=== PATIENT | male | born 1975 | race African-American/Black ===

== ENCOUNTER 2018-09-19 10:14 | Inpatient (IN) | payer OTHER ==
[~2018-09-19] VITALS: Ht 170.2 cm; Wt 103.0 kg
[2018-09-19] MEDS ORDERED: VANCOMYCIN 1 G PREMIX 200 ML IV SCH (11:00)
[2018-09-19] MEDS ORDERED: PIPERACILLIN/TAZ 2.25G PREMIX 50 ML IV ONE (11:00)
[2018-09-19 11:40] LABS: BASOPHILS % 0.4 % (0.0-2.0); EOSINOPHILS % 0.5 % (0.0-5.0); HEMATOCRIT. 34.2 % (42.0-52.0); HEMOGLOBIN. 11.4 g/dL (14.0-18.0); LYMPHOCYTES % 20.8 % (20.0-50.0); MEAN CORPUSCULAR HEMOGLOBIN 26.6 pg (28.0-32.0); MEAN CORPUSCULAR VOLUME 79.9 fL (80.0-94.0); MEAN PLATELET VOLUME 7.2 fl (7.4-10.4); MONOCYTES % 10.2 % (2.0-8.0); NEUTROPHILS % 68.1 % (40.0-76.0); PLATELET 333 x1000/uL (130-400); RED BLOOD CELL COUNT 4.28 mill/uL (4.7-6.1); RED CELL DISTRIBUTION WIDTH 16.1 % (11.6-14.6)
[2018-09-19 11:41] LABS: CHLORIDE 105 mEq/L (98-107)
[2018-09-19 11:48] LABS: PROTHROMBIN TIME 10.6 sec (9.6-11.0)
[2018-09-19] MEDS ORDERED: ONDANSETRON HCL 4MG/2ML INJ IV PRN (14:45)
[2018-09-19] MEDS ORDERED: CLONIDINE 0.1MG TABLET PO PRN (14:45)
[2018-09-19] MEDS ORDERED: ACETAMINOPHEN 325MG TABLET PO PRN (14:45)
[2018-09-19] MEDS ORDERED: MAGNESIUM/ALUMINUM HYDROXIDE/SIMETHICONE 30ML UDC PO PRN (14:45)
[2018-09-19] MEDS ORDERED: IPRATROPIUM/ALBUTEROL 0.5-3(2.5)MG/3ML NEB INH PRN (14:45)
[2018-09-19 17:28] LABS: *AMPHETAMINES SCREEN URINE NEGATIVE (NEGATIVE); *BARBITURATES SCREEN URINE NEGATIVE (NEGATIVE); *BENZODIAZEPINES SCREEN URINE NEGATIVE (NEGATIVE); *COCAINE SCREEN URINE NEGATIVE (NEGATIVE)
[2018-09-19 17:29] LABS: CANNABINOID URINE SCREEN NEGATIVE (NEGATIVE); METHADONE URINE SCREEN NEGATIVE (NEGATIVE); OPIATES URINE SCREEN NEGATIVE (NEGATIVE); PHENCYCLIDINE URINE SCREEN NEGATIVE (NEGATIVE)
[2018-09-19 19:13] LABS: CHLORIDE 105 mEq/L (98-107)
[2018-09-19] MEDS: ENOXAPARIN 40MG/0.4ML SYR SUBCUT SCH (21:00)
[2018-09-19] MEDS: HYDROCODONE/ACETAMINOPHEN 5/325MG TABLET PO PRN (21:38)
[2018-09-19 22:04] VITALS: BP 157/87
[2018-09-19 22:15] LABS: TOTAL IRON BINDING CAPACITY 292 ug/dL (250-450)
[2018-09-19] MEDS ORDERED: xarelto (22:20)
[2018-09-19] MEDS ORDERED: carvedilol (22:24)
[2018-09-19] MEDS ORDERED: [UNRECOGNIZED DRUG - OTHER] (22:26)
[2018-09-19 22:43] VITALS: BP 157/87
[2018-09-19 23:19] LABS: CHLORIDE 106 mEq/L (98-107)
[2018-09-19 23:27] LABS: CREATINE KINASE 168 IU/L (39-308)
[2018-09-20] VITALS: BP 114/75
[2018-09-20] MEDS: PIPERACILLIN/TAZ 3.375G PREMIX 50 ML IV SCH ×5 (03:29→23:00)
[2018-09-20] MEDS: VANCOMYCIN 750 MG PREMIX 150 ML IV SCH ×2 (03:33→08:05)
[2018-09-20 04:00] VITALS: BP 139/90
[2018-09-20 05:17] LABS: BASOPHILS % 0.5 % (0.0-2.0); EOSINOPHILS % 1.4 % (0.0-5.0); HEMOGLOBIN. 10.6 g/dL (14.0-18.0); LYMPHOCYTES % 29.5 % (20.0-50.0); MEAN CORPUSCULAR HEMOGLOBIN 26.3 pg (28.0-32.0); MEAN CORPUSCULAR VOLUME 79.6 fL (80.0-94.0); MEAN PLATELET VOLUME 7.3 fl (7.4-10.4); MONOCYTES % 9.8 % (2.0-8.0); NEUTROPHILS % 58.8 % (40.0-76.0); PLATELET 315 x1000/uL (130-400); RED BLOOD CELL COUNT 4.02 mill/uL (4.7-6.1)
[2018-09-20 05:51] LABS: LDL CHOLESTEROL 77 mg/dL (5-100)
[2018-09-20 05:53] LABS: CREATINE KINASE 144 IU/L (39-308); HDL CHOLESTEROL 41 mg/dL (40-59)
[2018-09-20 05:55] LABS: CREATINE KINASE MB FRACTION < 1.0 ng/mL (0.5-3.6)
[2018-09-20 08:00] VITALS: BP 112/70
[2018-09-20 12:00] VITALS: BP 117/78
[2018-09-20] MEDS ORDERED: SODIUM BICARBONATE 4% (2.4MEQ) 5ML VIAL IV ONE (12:47)
[2018-09-20] MEDS ORDERED: LIDOCAINE HCL 1% 20ML VIAL (Pyxis) INJ ONE (12:47)
[2018-09-20 16:00] VITALS: BP 111/86
[2018-09-20 20:00] VITALS: BP_SYST 123; BP_SYST 133; BP_DIAS 70; BP_DIAS 76
[2018-09-20] MEDS: VANCOMYCIN 1 G PREMIX 200 ML IV SCH (20:04)
[2018-09-20] MEDS: ENOXAPARIN 40MG/0.4ML SYR SUBCUT SCH (21:00)
[2018-09-20] MEDS: HYDROCODONE/ACETAMINOPHEN 5/325MG TABLET PO PRN (23:11)
[2018-09-21] VITALS (8 sets, daily range): BP systolic 108–144; BP diastolic 58–97
[2018-09-21] MEDS: HYDROCODONE/ACETAMINOPHEN 5/325MG TABLET PO PRN (03:01)
[2018-09-21] MEDS: PIPERACILLIN/TAZ 3.375G PREMIX 50 ML IV SCH ×4 (06:54→23:46)
[2018-09-21 07:28] LABS: HEMATOCRIT. 28.7 % (42.0-52.0); HEMOGLOBIN. 9.4 g/dL (14.0-18.0); MEAN CORPUSCULAR HEMOGLOBIN 26.6 pg (28.0-32.0); MEAN CORPUSCULAR VOLUME 81.3 fL (80.0-94.0); RED BLOOD CELL COUNT 3.53 mill/uL (4.7-6.1); RED CELL DISTRIBUTION WIDTH 16.3 % (11.6-14.6)
[2018-09-21] MEDS: VANCOMYCIN 1 G PREMIX 200 ML IV SCH ×2 (08:20→21:57)
[2018-09-21 08:49] LABS: PLATELET 254 x1000/uL (130-400)
[2018-09-21 08:55] LABS: PLATELET ESTIMATE NORMAL
[2018-09-21 09:39] LABS: CHLORIDE 108 mEq/L (98-107)
[2018-09-21] MEDS ORDERED: PROPOFOL 200MG/20ML VIAL IV ONE (13:42)
[2018-09-21] MEDS ORDERED: MIDAZOLAM HCL 2 MG/2 ML VIAL ONE (13:42)
[2018-09-21] MEDS ORDERED: FENTANYL CITRATE/PF 50MCG/ML 2ML VIAL ONE (13:42)
[2018-09-21] MEDS ORDERED: LIDOCAINE HCL/PF 1% 10 MG/ML 5ML VIAL ONE (13:43)
[2018-09-21] MEDS ORDERED: ROCURONIUM BROMIDE 10MG/ML VIAL 5ML IV ONE (13:43)
[2018-09-21] MEDS ORDERED: EPHEDRINE SULFATE 50MG/ML VIAL ONE (13:43)
[2018-09-21] MEDS ORDERED: PHENYLEPHRINE HCL 10 MG/ML 1ML (IV VIAL) IV ONE (13:43)
[2018-09-21] MEDS ORDERED: IODIXANOL 320MG/ML 200ML BOTTLE ONE (13:47)
[2018-09-21] MEDS ORDERED: LIDOCAINE HCL 1% 20ML VIAL (Pyxis) INJ ONE (13:48)
[2018-09-21] MEDS ORDERED: SODIUM CHLORIDE 0.9% 10ML VIAL ONE (13:50)
[2018-09-21] MEDS ORDERED: THROMBIN (BOVINE) 5000 UNITS/VIAL TOP ONE (14:22)
[2018-09-21] MEDS ORDERED: HEPARIN 1000 UNITS/ML 10ML ONE (14:25)
[2018-09-21] MEDS ORDERED: IOHEXOL-300 100 ML BOTTLE ONE (14:39)
[2018-09-21] MEDS ORDERED: MORPHINE SULFATE 10 MG/ML CPJ IV PRN (15:30)
[2018-09-21] MEDS: HYDROMORPHONE HCL/PF 2MG/ML CPJ IV PRN ×3 (16:10→16:26)
[2018-09-21] MEDS: CLOPIDOGREL 75MG TABLET PO SCH (17:58)
[2018-09-21] MEDS: ENOXAPARIN 40MG/0.4ML SYR SUBCUT SCH (23:18)
[2018-09-22] VITALS (11 sets, daily range): BP systolic 101–156; BP diastolic 56–98
[2018-09-22] MEDS ORDERED: RIVA20TA MT (03:22)
[2018-09-22] MEDS ORDERED: SACU1TAB MT (03:22)
[2018-09-22] MEDS ORDERED: FAMO20TA8 MT (03:22)
[2018-09-22] MEDS ORDERED: COR6 MT (03:22)
[2018-09-22] MEDS: PIPERACILLIN/TAZ 3.375G PREMIX 50 ML IV SCH ×4 (05:05→23:34)
[2018-09-22 06:51] LABS: BASOPHILS % 0.4 % (0.0-2.0); EOSINOPHILS % 1.5 % (0.0-5.0); HEMATOCRIT. 32.2 % (42.0-52.0); HEMOGLOBIN. 10.5 g/dL (14.0-18.0); LYMPHOCYTES % 16.7 % (20.0-50.0); MEAN CORPUSCULAR HEMOGLOBIN 26.1 pg (28.0-32.0); MEAN CORPUSCULAR VOLUME 79.9 fL (80.0-94.0); MEAN PLATELET VOLUME 7.2 fl (7.4-10.4); MONOCYTES % 7.7 % (2.0-8.0); NEUTROPHILS % 73.7 % (40.0-76.0); PLATELET 279 x1000/uL (130-400); RED BLOOD CELL COUNT 4.03 mill/uL (4.7-6.1); RED CELL DISTRIBUTION WIDTH 15.9 % (11.6-14.6)
[2018-09-22 07:51] LABS: CHLORIDE 107 mEq/L (98-107)
[2018-09-22] MEDS: CLOPIDOGREL 75MG TABLET PO SCH (07:58)
[2018-09-22] MEDS: VANCOMYCIN 1 G PREMIX 200 ML IV SCH (07:58)
[2018-09-22] MEDS: ENOXAPARIN 30MG/0.3ML SYR SUBCUT SCH (17:15)
[2018-09-22] MEDS ORDERED: ENOXAPARIN 30MG/0.3ML SYR SUBCUT SCH (21:00)
[2018-09-23] VITALS (12 sets, daily range): BP systolic 123–161; BP diastolic 68–96
[2018-09-23] MEDS: VANCOMYCIN 1250MG in DEXTROSE 5% WATER 250ML IV SCH ×2 (01:51→20:54)
[2018-09-23] MEDS ORDERED: VANCOMYCIN 750 MG PREMIX 150 ML IV SCH (02:00)
[2018-09-23] MEDS: PIPERACILLIN/TAZ 3.375G PREMIX 50 ML IV SCH ×4 (05:11→23:40)
[2018-09-23] MEDS: ENOXAPARIN 30MG/0.3ML SYR SUBCUT SCH ×2 (05:14→17:23)
[2018-09-23] MEDS: CLOPIDOGREL 75MG TABLET PO SCH (08:27)
[2018-09-23 09:25] LABS: EOSINOPHILS % 3.7 % (0.0-5.0); HEMATOCRIT. 33.5 % (42.0-52.0); HEMOGLOBIN. 10.9 g/dL (14.0-18.0); LYMPHOCYTES % 23.1 % (20.0-50.0); MEAN CORPUSCULAR HEMOGLOBIN 26.2 pg (28.0-32.0); MEAN CORPUSCULAR VOLUME 80.3 fL (80.0-94.0); MEAN PLATELET VOLUME 6.9 fl (7.4-10.4); MONOCYTES % 7.9 % (2.0-8.0); NEUTROPHILS % 64.3 % (40.0-76.0); PLATELET 256 x1000/uL (130-400); RED BLOOD CELL COUNT 4.17 mill/uL (4.7-6.1); RED CELL DISTRIBUTION WIDTH 16.6 % (11.6-14.6)
[2018-09-23 09:46] LABS: CHLORIDE 110 mEq/L (98-107)
[2018-09-23] MEDS ORDERED: LIDOCAINE HCL/EPINEPHRINE 1%-EPI 1:100,000 20 ML VIAL INFIL NR (10:45)
[2018-09-23] MEDS ORDERED: CLOP75TA16 PO (17:32)
[2018-09-24] VITALS (11 sets, daily range): BP systolic 117–154; BP diastolic 65–105
[2018-09-24] MEDS: PIPERACILLIN/TAZ 3.375G PREMIX 50 ML IV SCH ×2 (05:20→11:52)
[2018-09-24] MEDS: ENOXAPARIN 30MG/0.3ML SYR SUBCUT SCH (05:20)
[2018-09-24] MEDS: CLOPIDOGREL 75MG TABLET PO SCH (09:50)
[2018-09-24] MEDS: VANCOMYCIN 1250MG in DEXTROSE 5% WATER 250ML IV SCH (13:40)
== END 2018-09-24 14:58 | disposition home health service (06) | DRG 181 ==
LOC: ER 10:14 → 6EST 12:29 → EDBEDREQ 12:30 → EDBEDREQSVC 12:30 → EDBEDREQTM 12:30 → ENRESERV 18:24 → 3WST 09-21 17:45
PROVIDERS: ADMIT Internal Medicine; ATTEND Internal Medicine
PROC: B5181ZA Fluoroscopy of Superior Vena Cava using Low Osmolar Contrast, Guidance (ICD-10-PCS; 2018-09-19)
PROC: 02HV33Z Insertion of Infusion Device into Superior Vena Cava, Percutaneous Approach (ICD-10-PCS; 2018-09-19)
PROC: B548ZZA Ultrasonography of Superior Vena Cava, Guidance (ICD-10-PCS; 2018-09-19)
PROC: 04CL0ZZ Extirpation of Matter from Left Femoral Artery, Open Approach (ICD-10-PCS; principal; 2018-09-21)
PROC: 04CN0ZZ Extirpation of Matter from Left Popliteal Artery, Open Approach (ICD-10-PCS; 2018-09-21)
PROC: 047L3ZZ Dilation of Left Femoral Artery, Percutaneous Approach (ICD-10-PCS; 2018-09-21)
PROC: 047M3ZZ Dilation of Right Popliteal Artery, Percutaneous Approach (ICD-10-PCS; 2018-09-21)
PROC: B41G1ZZ Fluoroscopy of Left Lower Extremity Arteries using Low Osmolar Contrast (ICD-10-PCS; 2018-09-21)
PROC: B41F1ZZ Fluoroscopy of Right Lower Extremity Arteries using Low Osmolar Contrast (ICD-10-PCS; 2018-09-21)
PROC: 0KBS0ZZ Excision of Right Lower Leg Muscle, Open Approach (ICD-10-PCS; 2018-09-23)
DX: I70.203 Unspecified atherosclerosis of native arteries of extremities, bilateral legs (principal); I74.5 Embolism and thrombosis of iliac artery; L97.519 Non-pressure chronic ulcer of other part of right foot with unspecified severity; S91.319A Laceration without foreign body, unspecified foot, initial encounter; L97.529 Non-pressure chronic ulcer of other part of left foot with unspecified severity; I10 Essential (primary) hypertension; D64.9 Anemia, unspecified; X58.XXXA Exposure to other specified factors, initial encounter; Z85.47 Personal history of malignant neoplasm of testis; Y92.89 Other specified places as the place of occurrence of the external cause; Y93.89 Activity, other specified; Y99.8 Other external cause status; Z90.79 Acquired absence of other genital organ(s)
CPT/HCPCS: 36415; 36569; 36573; 37184; 37224; 71045; 73620; 75710; 80048; 80061; 80202; 80305; 82550; 82553; 83540; 83550; 83735; 84443; 84484; 85044; 86850; 86900; 93005; 93922; 93970; 96365; 96367; 97162; 97165; 99285; C1725; C1769; C1893; C1894; J1170; J1644; J1650; J2250; J2270; J2370; J2405; J2543; J2704; J3010; J3370; J3490; J7040; J7050; J7060; Q9967

== ENCOUNTER 2018-10-05 04:07 | Emergency (ER) | payer OTHER ==
[~2018-10-05] VITALS: Ht 170.2 cm; Wt 101.0 kg
[~2018-10-05 04:07] MED LIST: CLOP75TA4 PO; COR6 MT; FAMO20TA8 MT; RIVA20TA MT; SACU1TAB MT
[2018-10-05 04:58] LABS: CLARITY URINE CLEAR (CLEAR); COLOR URINE DARK YELLOW (YELLOW); KETONES URINE TRACE (NEGATIVE); LEUKOCYTE ESTERASE URINE NEGATIVE (NEGATIVE); NITRITE URINE NEGATIVE (NEGATIVE); OCCULT BLOOD URINE NEGATIVE (NEGATIVE); PH URINE 5.5 (4.5-8.0); PROTEIN URINE 1+ (NEGATIVE); SPECIFIC GRAVITY URINE 1.043 (1.005-1.030)
[2018-10-05] MEDS ORDERED: ONDANSETRON HCL 4MG/2ML INJ IV STA (05:39)
[2018-10-05] MEDS ORDERED: KETOROLAC 30MG/ML VIAL IV STA (05:39)
[2018-10-05] MEDS ORDERED: SODIUM CHLORIDE 0.9% 1,000 ML IV ONE (05:39)
[2018-10-05 06:20] LABS: CHLORIDE 106 mEq/L (98-107)
[2018-10-05 06:22] LABS: BASOPHILS % 0.3 % (0.0-2.0); EOSINOPHILS % 0.2 % (0.0-5.0); HEMATOCRIT. 34.9 % (42.0-52.0); HEMOGLOBIN. 11.5 g/dL (14.0-18.0); LYMPHOCYTES % 11.8 % (20.0-50.0); MEAN CORPUSCULAR VOLUME 81.8 fL (80.0-94.0); MONOCYTES % 5.8 % (2.0-8.0); NEUTROPHILS % 81.9 % (40.0-76.0); PLATELET 264 x1000/uL (130-400); RED BLOOD CELL COUNT 4.26 mill/uL (4.7-6.1); RED CELL DISTRIBUTION WIDTH 17.4 % (11.6-14.6)
[2018-10-05] MEDS ORDERED: MORPHINE SULFATE 4 MG/ML CPJ (NOT FOR IM USE) IV ONE (07:00)
[2018-10-05] MEDS ORDERED: SODIUM CHLORIDE 0.9% 1,000 ML IV SCH (08:22)
[2018-10-05] MEDS ORDERED: ENOXAPARIN 40MG/0.4ML SYR SUBCUT SCH (08:30)
[2018-10-05] MEDS ORDERED: MAGNESIUM/ALUMINUM HYDROXIDE/SIMETHICONE 30ML UDC PO PRN (08:30)
[2018-10-05] MEDS ORDERED: IPRATROPIUM/ALBUTEROL 0.5-3(2.5)MG/3ML NEB INH PRN (08:30)
[2018-10-05] MEDS ORDERED: DOCUSATE SODIUM 100MG CAPSULE PO PRN (08:30)
[2018-10-05] MEDS ORDERED: GUAIFENESIN 200MG/10ML SUGAR FREE UDC PO PRN (08:30)
[2018-10-05] MEDS ORDERED: DIPHENHYDRAMINE 50MG/ML VIAL IV PRN (08:30)
[2018-10-05] MEDS ORDERED: ONDANSETRON HCL 4MG/2ML INJ IV PRN (08:30)
[2018-10-05] MEDS ORDERED: MORPHINE SULFATE 2 MG/ML CPJ (NOT FOR IM USE) IV PRN (08:30)
[2018-10-05] MEDS ORDERED: CLONIDINE 0.1MG TABLET PO PRN (08:30)
[2018-10-05 08:54] LABS: PHOSPHORUS 3.4 mg/dL (2.5-4.9)
[2018-10-05] MEDS ORDERED: DEXT 5%/0.45% NACL 1000ML 1,000 ML IV SCH (09:00)
[2018-10-05 09:50] VITALS: BP 127/72
== END 2018-10-05 10:12 | disposition short-term general hospital (02) ==
LOC: ER 04:36 → EDBEDREQSVC 07:05 → EDBEDREQ 07:05 → EDBEDREQTM 07:05 → ENRESERV 07:44 → CANRESERV 07:44 → CANBEDREQ 08:11 → ER 10:12
DX: K85.90 Acute pancreatitis without necrosis or infection, unspecified (principal); I11.9 Hypertensive heart disease without heart failure; Z95.0 Presence of cardiac pacemaker; Z85.9 Personal history of malignant neoplasm, unspecified
CPT/HCPCS: 36415; 76705; 80053; 81003; 83036; 83690; 83735; 84100; 85025; 96361; 96374; 99285; J2405; J7030; J1885

== ENCOUNTER 2021-10-31 23:22 | Emergency (ER) | payer OTHER ==
[~2021-10-31] VITALS: Ht 170.2 cm; Wt 107.0 kg
[~2021-10-31 23:22] MED LIST changes: +CLOP-31 PO; -CLOP75TA4 PO
[2021-11-01] MEDS ORDERED: PIPERACILLIN/TAZ 3.375G PREMIX 50 ML IV ONE (00:15)
[2021-11-01] MEDS ORDERED: KETOROLAC 15MG/ML VIAL IV ONE (00:15)
[2021-11-01] MEDS ORDERED: VANCOMYCIN 1G PREMIX 200 ML IV ONE (00:15)
[2021-11-01] MEDS ORDERED: SODIUM CHLORIDE 0.9% 1000ML BAG (SEPSIS BOLUS) IV ONE (00:15)
[2021-11-01 00:45] LABS: HEMATOCRIT. 31.4 % (42.0-52.0); HEMOGLOBIN. 10.4 g/dL (14.0-18.0); MEAN CORPUSCULAR VOLUME 81.4 fL (80.0-94.0); MEAN PLATELET VOLUME 8.1 fl (7.4-10.4); PLATELET 293 x1000/uL (130-400); RED BLOOD CELL COUNT 3.86 mill/uL (4.7-6.1); RED CELL DISTRIBUTION WIDTH 14.9 % (11.6-14.6)
[2021-11-01 01:37] LABS: INR 1.7; PARTIAL THROMBOPLASTIN TIME 59.4 sec (23.4-31.0); PROTHROMBIN TIME 17.7 sec (9.6-11.0)
[2021-11-01 01:43] LABS: CHLORIDE 107 mEq/L (98-107)
[2021-11-01 03:03] VITALS: BP 90/50
[2021-11-01 04:00] LABS: PLATELET ESTIMATE NORMAL
== END 2021-11-01 03:33 | disposition short-term general hospital (02) ==
LOC: ER 23:22
DX: M86.9 Osteomyelitis, unspecified (principal); A41.9 Sepsis, unspecified organism; K57.00 Diverticulitis of small intestine with perforation and abscess without bleeding; I11.9 Hypertensive heart disease without heart failure; I99.9 Unspecified disorder of circulatory system; Z80.9 Family history of malignant neoplasm, unspecified; Z95.0 Presence of cardiac pacemaker; Z20.822 Contact with and (suspected) exposure to COVID-19
CPT/HCPCS: 36415; 71045; 73630; 80053; 83605; 83880; 84145; 84484; 85025; 85610; 85730; 87040; 87426; 93005; 96365; 96368; 96375; 99291; J1885; J2543; J3370; J7030